=== PATIENT | male | born 1945 | race African-American/Black ===

== ENCOUNTER 2021-04-14 10:45 | Inpatient (IN) | payer MEDICARE, MEDICAID ==
[~2021-04-14] VITALS: Ht 177.8 cm; Wt 60.3 kg
[~2021-04-14 10:45] MED LIST: FERR325T6 PO; FINA5TAB11 PO; LEVO500T89 PO; SENN-257 PO; TAMS0.4C31 PO
[2021-04-14] MEDS ORDERED: SODIUM CHLORIDE 0.9% 500 ML IV ONE ×2 (11:45→17:15)
[2021-04-14 12:08] LABS: BASOPHILS % 0.2 % (0.0-2.0); HEMATOCRIT. 55.6 % (42.0-52.0); HEMOGLOBIN. 17.8 g/dL (14.0-18.0); LYMPHOCYTES % 15.2 % (20.0-50.0); MEAN CORPUSCULAR HEMOGLOBIN 29.9 pg (28.0-32.0); MEAN CORPUSCULAR VOLUME 93.5 fL (80.0-94.0); MEAN PLATELET VOLUME 10.9 fl (7.4-10.4); NEUTROPHILS % 79.6 % (40.0-76.0); PLATELET 160 x1000/uL (130-400); RED BLOOD CELL COUNT 5.95 mill/uL (4.7-6.1); RED CELL DISTRIBUTION WIDTH 16.4 % (11.6-14.6)
[2021-04-14 12:19] LABS: INR 1.2
[2021-04-14 12:30] LABS: CHLORIDE 133 mEq/L (98-107)
[2021-04-14] MEDS ORDERED: PIPERACILLIN/TAZ 3.375G PREMIX 50 ML IV ONE (13:00)
[2021-04-14 13:17] LABS: CLARITY URINE TURBID (CLEAR); COLOR URINE ORANGE (YELLOW); KETONES URINE TRACE (NEGATIVE); LEUKOCYTE ESTERASE URINE 1+ (NEGATIVE); NITRITE URINE NEGATIVE (NEGATIVE); OCCULT BLOOD URINE 3+ (NEGATIVE); PROTEIN URINE 2+ (NEGATIVE)
[2021-04-14] MEDS ORDERED: KETOROLAC 15MG/ML VIAL IV PRN (14:00)
[2021-04-14] MEDS ORDERED: NA PHOS,M-B/NA PHOS,DI-BA ENEMA 118ML PR PRN (14:00)
[2021-04-14] MEDS ORDERED: TRAMADOL 50MG TABLET PO PRN (14:00)
[2021-04-14] MEDS ORDERED: MAGNESIUM/ALUMINUM HYDROXIDE/SIMETHICONE 30ML UDC PO PRN (14:00)
[2021-04-14] MEDS ORDERED: IPRATROPIUM/ALBUTEROL 0.5-3(2.5)MG/3ML NEB NEB PRN (14:00)
[2021-04-14] MEDS ORDERED: ACETAMINOPHEN 325MG TABLET PO PRN ×2 (14:00)
[2021-04-14] MEDS ORDERED: ONDANSETRON HCL 4MG/2ML INJ IV PRN (14:00)
[2021-04-14] MEDS ORDERED: ZOLPIDEM TARTRATE 5MG TABLET PO PRN (14:00)
[2021-04-14] MEDS ORDERED: NITROGLYCERIN 0.4MG TABLET SL SL PRN (14:00)
[2021-04-14] MEDS ORDERED: DOCUSATE SODIUM 100MG CAPSULE PO PRN (14:00)
[2021-04-14] MEDS ORDERED: GUAIFENESIN 200MG/10ML SUGAR FREE UDC PO PRN (14:00)
[2021-04-14] MEDS: DEXT 5%/0.45% NACL 1000ML 1,000 ML IV SCH (14:52)
[2021-04-14] MEDS ORDERED: VANCOMYCIN 1 G PREMIX 200 ML IV SCH (15:00)
[2021-04-14] MEDS: FAMOTIDINE 20MG TABLET PO SCH ×2 (15:00→17:47)
[2021-04-14] MEDS: ENOXAPARIN 40MG/0.4ML SYR SUBCUT SCH (15:33)
[2021-04-14 16:18] LABS: FERRITIN 513 ng/mL (22-322)
[2021-04-14 16:22] LABS: T4 FREE 1.23 ng/dL (0.76-1.46)
[2021-04-14 16:24] LABS: CREATINE KINASE MB FRACTION < 1.0 ng/mL (0.5-3.6)
[2021-04-14 16:28] LABS: CREATINE KINASE 627 IU/L (39-308)
[2021-04-14 16:44] LABS: FOLIC ACID (FOLATE) SERUM > 20.00 ng/mL (>5.38)
[2021-04-14 16:46] LABS: VITAMIN B12 SERUM < 60 pg/mL (211-911)
[2021-04-14] MEDS ORDERED: ASPIRIN 300MG SUPP PR ONE (17:15)
[2021-04-14] MEDS: DILTIAZEM HCL 60MG TABLET PO SCH (17:46)
[2021-04-14] MEDS: PIPERACILLIN/TAZ 3.375G PREMIX 50 ML IV SCH (19:15)
[2021-04-14] MEDS: ASCORBIC ACID 500 MG TABLET PO SCH (21:21)
[2021-04-14 23:20] LABS: CREATINE KINASE 482 IU/L (39-308)
[2021-04-14 23:21] LABS: CREATINE KINASE MB FRACTION < 1.0 ng/mL (0.5-3.6)
[2021-04-15] MEDS: DILTIAZEM HCL 60MG TABLET PO SCH ×4 (00:10→18:12)
[2021-04-15] MEDS: DEXT 5%/0.45% NACL 1000ML 1,000 ML IV SCH ×2 (00:10→11:00)
[2021-04-15] MEDS: PIPERACILLIN/TAZ 3.375G PREMIX 50 ML IV SCH (03:06)
[2021-04-15 07:23] LABS: CHLORIDE 135 mEq/L (98-107)
[2021-04-15 07:29] LABS: PHOSPHORUS 2.9 mg/dL (2.5-4.9)
[2021-04-15 08:40] LABS: BASOPHILS % 0.1 % (0.0-2.0); EOSINOPHILS % 0.6 % (0.0-5.0); HEMATOCRIT. 43.5 % (42.0-52.0); HEMOGLOBIN. 13.9 g/dL (14.0-18.0); LYMPHOCYTES % 18.1 % (20.0-50.0); MEAN CORPUSCULAR HEMOGLOBIN 30.3 pg (28.0-32.0); MEAN CORPUSCULAR VOLUME 94.6 fL (80.0-94.0); MEAN PLATELET VOLUME 10.5 fl (7.4-10.4); MONOCYTES % 3.3 % (2.0-8.0); NEUTROPHILS % 77.9 % (40.0-76.0); PLATELET 114 x1000/uL (130-400); RED CELL DISTRIBUTION WIDTH 16.1 % (11.6-14.6)
[2021-04-15 10:20] VITALS: BP 156/79
[2021-04-15 10:28] VITALS: BP 156/79
[2021-04-15] MEDS: FAMOTIDINE 20MG TABLET PO SCH (10:59)
[2021-04-15] MEDS: VANCOMYCIN 1 G PREMIX 200 ML IV SCH (10:59)
[2021-04-15] MEDS: ASPIRIN 325MG EC TABLET PO SCH (11:00)
[2021-04-15] MEDS: ZINC SULFATE 220 MG ( 50 ) CAPSULE PO SCH (11:00)
[2021-04-15] MEDS: CHOLECALCIFEROL (D3) 1000 UNIT TABLET PO SCH (11:00)
[2021-04-15] MEDS: ASCORBIC ACID 500 MG TABLET PO SCH ×2 (11:00→21:20)
[2021-04-15] MEDS: CYANOCOBALAMIN 1000MCG/ML VIAL IM SCH (13:31)
[2021-04-15] MEDS: PIPERACILLIN/TAZOBACTAM 3.375G in DEXT 5% WATER 50ML IV SCH ×3 (13:31→21:20)
[2021-04-15 16:00] VITALS: BP 143/71
[2021-04-15] MEDS: ENOXAPARIN 40MG/0.4ML SYR SUBCUT SCH (18:12)
[2021-04-16] VITALS: BP 130/69
[2021-04-16] MEDS: DILTIAZEM HCL 60MG TABLET PO SCH ×4 (00:45→17:53)
[2021-04-16] MEDS: DEXT 5%/0.45% NACL 1000ML 1,000 ML IV SCH ×2 (02:09→05:12)
[2021-04-16] MEDS: PIPERACILLIN/TAZOBACTAM 3.375G in DEXT 5% WATER 50ML IV SCH ×4 (03:06→21:07)
[2021-04-16] MEDS: VANCOMYCIN 1 G PREMIX 200 ML IV SCH ×2 (03:39→22:01)
[2021-04-16 04:00] VITALS: BP 149/70
[2021-04-16 06:56] LABS: BASOPHILS % 0.1 % (0.0-2.0); EOSINOPHILS % 1.7 % (0.0-5.0); HEMATOCRIT. 40.9 % (42.0-52.0); LYMPHOCYTES % 17.3 % (20.0-50.0); MEAN CORPUSCULAR VOLUME 94.1 fL (80.0-94.0); MEAN PLATELET VOLUME 11.4 fl (7.4-10.4); MONOCYTES % 3.4 % (2.0-8.0); NEUTROPHILS % 77.5 % (40.0-76.0); PLATELET 103 x1000/uL (130-400); RED BLOOD CELL COUNT 4.35 mill/uL (4.7-6.1)
[2021-04-16 07:28] LABS: CHLORIDE 130 mEq/L (98-107)
[2021-04-16 07:39] LABS: PHOSPHORUS 2.2 mg/dL (2.5-4.9)
[2021-04-16 08:00] VITALS: BP 161/62
[2021-04-16] MEDS: CHOLECALCIFEROL (D3) 1000 UNIT TABLET PO SCH (09:01)
[2021-04-16] MEDS: ASCORBIC ACID 500 MG TABLET PO SCH ×2 (09:01→21:06)
[2021-04-16] MEDS: CLONIDINE 0.1MG TABLET PO PRN (09:01)
[2021-04-16] MEDS: ASPIRIN 325MG EC TABLET PO SCH (09:01)
[2021-04-16] MEDS: FAMOTIDINE 20MG TABLET PO SCH (09:02)
[2021-04-16] MEDS: CYANOCOBALAMIN 1000MCG/ML VIAL IM SCH (09:02)
[2021-04-16] MEDS: ZINC SULFATE 220 MG ( 50 ) CAPSULE PO SCH (09:02)
[2021-04-16 12:00] VITALS: BP 118/65
[2021-04-16] MEDS ORDERED: POTASSIUM CHLORIDE 20MEQ TABLET SR PO SCH (12:00)
[2021-04-16] MEDS ORDERED: POTASSIUM CHLORIDE INJ 40 MEQ in DEXT 5% WATER 250 ML IV SCH (13:00)
[2021-04-16] MEDS: ENOXAPARIN 40MG/0.4ML SYR SUBCUT SCH (14:07)
[2021-04-16] MEDS ORDERED: NALOXONE HCL 0.4MG/ML VIAL IV PRN (15:00)
[2021-04-16 16:00] VITALS: BP 139/73
[2021-04-16 20:00] VITALS: BP 113/74
[2021-04-17] VITALS: BP 110/55
[2021-04-17] MEDS: PIPERACILLIN/TAZOBACTAM 3.375G in DEXT 5% WATER 50ML IV SCH ×4 (03:28→21:25)
[2021-04-17 04:00] VITALS: BP 156/85
[2021-04-17] MEDS: DILTIAZEM HCL 60MG TABLET PO SCH ×4 (05:04→17:15)
[2021-04-17 07:31] LABS: CHLORIDE 122 mEq/L (98-107)
[2021-04-17 08:00] VITALS: BP 134/72
[2021-04-17] MEDS: ASPIRIN 325MG EC TABLET PO SCH (09:11)
[2021-04-17] MEDS: CYANOCOBALAMIN 1000MCG/ML VIAL IM SCH (09:11)
[2021-04-17] MEDS: FAMOTIDINE 20MG TABLET PO SCH (09:11)
[2021-04-17] MEDS: ZINC SULFATE 220 MG ( 50 ) CAPSULE PO SCH (09:11)
[2021-04-17] MEDS: CHOLECALCIFEROL (D3) 1000 UNIT TABLET PO SCH (09:11)
[2021-04-17] MEDS: ASCORBIC ACID 500 MG TABLET PO SCH ×2 (09:11→21:25)
[2021-04-17 12:00] VITALS: BP 162/71
[2021-04-17] MEDS ORDERED: VANCOMYCIN 1 G PREMIX 200 ML IV SCH (13:00)
[2021-04-17] MEDS: VANCOMYCIN 750 MG PREMIX 150 ML IV SCH (13:08)
[2021-04-17] MEDS: ENOXAPARIN 40MG/0.4ML SYR SUBCUT SCH (14:06)
[2021-04-17 16:00] VITALS: BP 170/79
[2021-04-17] MEDS: CLONIDINE 0.1MG TABLET PO PRN (17:15)
[2021-04-17 20:00] VITALS: BP 138/56
[2021-04-18] VITALS: BP 115/89
[2021-04-18] MEDS: VANCOMYCIN 750 MG PREMIX 150 ML IV SCH ×2 (00:49→13:00)
[2021-04-18] MEDS: DILTIAZEM HCL 60MG TABLET PO SCH ×4 (00:49→17:25)
[2021-04-18] MEDS: PIPERACILLIN/TAZOBACTAM 3.375G in DEXT 5% WATER 50ML IV SCH ×3 (03:46→16:00)
[2021-04-18 04:00] VITALS: BP 147/65
[2021-04-18 08:00] VITALS: BP 156/68
[2021-04-18] MEDS: CYANOCOBALAMIN 1000MCG/ML VIAL IM SCH (08:41)
[2021-04-18] MEDS: ASPIRIN 325MG EC TABLET PO SCH (08:41)
[2021-04-18] MEDS: FAMOTIDINE 20MG TABLET PO SCH (08:41)
[2021-04-18] MEDS: ASCORBIC ACID 500 MG TABLET PO SCH (08:41)
[2021-04-18] MEDS: ZINC SULFATE 220 MG ( 50 ) CAPSULE PO SCH (08:41)
[2021-04-18] MEDS: CHOLECALCIFEROL (D3) 1000 UNIT TABLET PO SCH (08:45)
[2021-04-18 12:00] VITALS: BP 147/74
[2021-04-18] MEDS: ENOXAPARIN 40MG/0.4ML SYR SUBCUT SCH (13:48)
[2021-04-18 16:00] VITALS: BP 133/79
== END 2021-04-18 20:04 | DRG 871 ==
LOC: ER 10:45 → MICUSO 13:43 → EDBEDREQ 13:57 → EDBEDREQTM 13:57 → 7EST 04-15 07:43
PROVIDERS: ADMIT Internal Medicine; ATTEND Internal Medicine
DX: A41.9 Sepsis, unspecified organism (principal); J18.9 Pneumonia, unspecified organism; N17.0 Acute kidney failure with tubular necrosis; G92 Toxic encephalopathy; I21.4 Non-ST elevation (NSTEMI) myocardial infarction; J96.00 Acute respiratory failure, unspecified whether with hypoxia or hypercapnia; N18.6 End stage renal disease; N39.0 Urinary tract infection, site not specified; E87.0 Hyperosmolality and hypernatremia; E44.0 Moderate protein-calorie malnutrition; I12.0 Hypertensive chronic kidney disease with stage 5 chronic kidney disease or end stage renal disease; R65.20 Severe sepsis without septic shock; Z20.822 Contact with and (suspected) exposure to COVID-19; N40.0 Benign prostatic hyperplasia without lower urinary tract symptoms; F03.90 Unspecified dementia, unspecified severity, without behavioral disturbance, psychotic disturbance, mood disturbance, and anxiety; Z86.73 Personal history of transient ischemic attack (TIA), and cerebral infarction without residual deficits; Z79.899 Other long term (current) drug therapy; Z79.1 Long term (current) use of non-steroidal anti-inflammatories (NSAID); Z99.2 Dependence on renal dialysis; D51.9 Vitamin B12 deficiency anemia, unspecified
CPT/HCPCS: 36415; 71045; 80048; 80053; 80202; 81003; 82550; 82553; 82607; 82728; 82746; 82962; 83036; 83540; 83550; 83605; 83615; 83735; 83880; 84100; 84145; 84439; 84443; 84484; 85025; 85384; 86140; 92610; 93005; 93970; 99291; J1650; J2543; J3370; J3420; J3480; J7030; J7040; J7060; U0003; U0005